=== PATIENT | male | born 1995 | race African-American/Black ===

== ENCOUNTER 2017-07-22 09:40 | Inpatient (IN) | payer OTHER ==
[2017-07-22 10:22] LABS: #Basophils 0.2 thou/uL (0.0-0.2); #Eosinphils 0.1 thou/uL (0.0-0.7); #Lymphocytes 2.6 thou/uL (1.20-3.40); #Monocytes 0.6 thou/uL (0.11-0.59); #Neutrophils 6.9 thou/uL (1.40-6.50); %Basophils 1.5 % (0.0-1.0); %Eosinophils 1.4 % (0.0-10.0); %Lymphocytes 25.2 % (21.0-51.0); %Monocytes 6.1 % (0.0-10.0); Hematocrit 49.3 % (42.0-52.0); Mean Platelet Volume 5.9 fL (7.4-10.4); Red Blood Cell (RBC) Count 5.27 mill/uL (4.70-6.10); White Blood Cell (WBC) Count 10.4 thou/uL (4.8-10.8)
[2017-07-22 10:37] LABS: ALT (SGPT) 14 U/L (8-55); AST (SGOT) 10 U/L (5-34); Alkaline Phosphatase 87 U/L (40-150); Anion Gap 17 mmol/L (10-20); BUN (Urea Nitrogen) 13 mg/dL (8.9-20.6); Bilirubin, Total 0.6 mg/dL (0.2-1.2); Calc. Creatinine Clearance 0 mL/min (70-130); Calcium 9.2 mg/dL (7.8-10.44); Carbon Dioxide 24 mmol/L (22-29); Chloride 101 mmol/L (98-107); Estimated GFR-MDRD Greater than 90; Globulin 3.4 g/dL (2.4-3.5); Lipase 15 U/L (8-78); Protein, Total 7.3 g/dL (6.0-8.3)
[2017-07-22 10:40] LABS: Bilirubin Negative (Negative); Blood, Urine Negative (Negative); Glucose, Urine (Dipstick) 250 mg/dL (Negative); Ketone, Urine Trace mg/dL (Negative); Nitrite Negative (Negative); Protein, Urine (Dipstick) Negative (Neg-Trace)
[2017-07-22] MEDS ORDERED: Ondansetron HCl/PF 4 MG/2 ML Vial ONE (10:53)
[2017-07-22] MEDS ORDERED: Iopamidol 370 76% 100 ML VIAL ONE (13:44)
[2017-07-22] MEDS ORDERED: Ciprofloxacin Lactate/D5W 400 mg/200 ml Premix ONE (14:02)
[2017-07-22] MEDS ORDERED: Insulin Regular 300 UNITS/3 ML VIAL ONE (14:02)
--- NOTE | 2017-07-22 14:30 | ULT ---
GALLBLADDER ULTRASOUND: History: Right upper quadrant pain. FINDINGS: Real-time images of the right upper quadrant show a slightly contracted gallbladder. No gallstones. T he patient is not NPO for this examination. The common duct is 2 mm. Technologist reports a negative ultrasound Bond's sign. Visualized liver parenchyma shows no focal abnormalities. The right kidney is normal in size and not obstructed. Pancreas is obscured. IMPRESSION: No evidence of gallstones. POS: DAVI
[2017-07-22] MEDS ORDERED: metroNIDAZOLE 500 MG/100 ML BAG ONE (15:22)
--- NOTE | 2017-07-22 15:37 | CT ---
CT ABDOMEN WITH CONTRAST CT PELVIS WITH CONTRAST: HISTORY: 22-year-old male with upper abdominal pain for two days. Technique: IV contrast: Isovue 370 Oral contrast: Not administered. FINDINGS: Liver: normal. Spleen: normal. Pancreas: normal. Kidneys: normal. Bladder: normal. Abdominal aorta: normal. Free fluid: None. Colon: There is diffuse mural thickening throughout the lower sigmoid colon and entire rectum. Smaill bowel: not distended. Appendix: normal. There are diffuse interstitial densities throughout the base of the bilateral lungs. At least part of this is due to breathing motion artifact. It is uncertain whether or not there are actual interstiti al densities in addition to the artifact. IMPRESSION: 1. Findings suggestive of proctitis throughout the rectum and distal sigmoid colon. 3. Otherwise, no other abnormality in the rest of the abdomen and pelvis. 4. Interstitial densities in the bilateral lung bases, at least part of which represents breathing mo tion artifact. kamryn POS: YELENA
[2017-07-22] MEDS ORDERED: Ondansetron ODT 4 MG TAB SL PRN (17:04)
[2017-07-22] MEDS ORDERED: Ondansetron HCl/PF 4 MG/2 ML Vial IVP PRN ×3 (17:04→17:09)
[2017-07-22] MEDS ORDERED: Acetaminophen 325 MG TAB PO PRN (17:04)
[2017-07-22] MEDS ORDERED: Sodium Chloride 0.9% 1,000 ML IV SCH (17:04)
[2017-07-22] MEDS ORDERED: Dextrose 50% Abboject 50 ML SYRINGE SLOW IVP PRN (17:09)
[2017-07-22] MEDS ORDERED: Mag-Al 1200 mg/1200 mg/30 ML UDCUP PO PRN (17:09)
[2017-07-22] MEDS ORDERED: Senokot 8.6 MG TAB PO PRN (17:09)
[2017-07-22] MEDS ORDERED: Calcium Carbonate 500 MG ChewTAB PO PRN (17:09)
[2017-07-22] MEDS ORDERED: Bisacodyl 5 MG TAB PO PRN (17:09)
[2017-07-22] MEDS ORDERED: Nitroglycerin 0.4 MG TAB (25 Tab Bottle) SL PRN (17:09)
[2017-07-22] MEDS ORDERED: Benzonatate 100 MG CAP PO PRN (17:09)
[2017-07-22] MEDS ORDERED: Diabetic Tussin 200 MG/10 ML UDCUP PO PRN (17:09)
[2017-07-22] MEDS ORDERED: hydrALAZINE 20 MG/ML VIAL SLOW IVP PRN (17:09)
[2017-07-22] MEDS ORDERED: cloNIDine 0.1 MG TAB PO PRN (17:09)
[2017-07-22] MEDS ORDERED: Dextrose 5% in Water 1,000 ML IV PRN (17:09)
[2017-07-22] MEDS ORDERED: Lorazepam 1 MG TAB PO PRN (17:09)
[2017-07-22] MEDS ORDERED: Loratadine 10 MG TAB PO PRN (17:09)
[2017-07-22] MEDS: HumaLOG 300 UNITS/3 ML VIAL SC PRN ×2 (18:10→21:29)
--- NOTE | 2017-07-22 18:17 | HP ---
DATE OF ADMISSION: 07/22/2017 PRIMARY CARE PHYSICIAN: Faith Chance M.D. CHIEF COMPLAINT: Abdominal pain. HISTORY OF PRESENTING ILLNESS: Mr. Wood is a very pleasant 22-year-old -Citizen Of [place] male with a history of Down syndrome as well as diabetes mellitus who presented to the [facility] with the above-mentioned complaints. History is mainly obtained by the patient himself and [facility] medical records have been reviewed. The patient is somewhat of a poor historian because of D own syndrome and speech problems and his mother is also the history provider. Case has been discusse d with admitting ER physician in [facility]. According to Mr. Wood's mother, he started to have abdominal pain 2 days ago. It is mainly upper ab dominal and epigastric in region. He has not had any nausea or vomiting with pain. He did not have any diarrhea, but this morning he started to have some loose stools without any blood in it. He did eat out at [employer] recently, but nothing out of ordinary. On presentation to the emergency room, he was hemodynamically stable. He underwent initially an ultr asound of the abdomen and pelvis which was dedicated to gallbladder. It did not show any gallstones. Later because of persistent pain, he underwent a CT scan of the abdomen and pelvis with contrast wh ich showed findings suggestive of proctitis throughout the rectum and distal sigmoid colon. Otherwis e it was unremarkable. Given these findings, he was given IV antibiotics including metronidazole as well as ciprofloxacin and is transferred to our facility for further workup and admission. PAST MEDICAL HISTORY: 1. Diabetes mellitus. 2. Down syndrome. 3. History of seizure disorder. PAST SURGICAL HISTORY: 1. Bilateral eye surgery. 2. Bilateral tubes to ears. FAMILY HISTORY: No family history of any inflammatory bowel disease. No premature coronary artery d isease. PSYCHIATRIC HISTORY: Anxiety. SOCIAL HISTORY: He lives with his family. No history of drug, tobacco or alcohol abuse. ALLERGIES: No known medication allergies. CURRENT MEDICATIONS: Gabapentin 300 mg daily, Humalog insulin sliding scale, Lantus 45 units once a day, metformin 1000 mg b.i.d., and omeprazole 20 mg daily. REVIEW OF SYSTEMS: Limited due to the patient's speech, it is not able to be understood and Down syn drome. He does report abdominal pain mainly in the upper part. LABORATORY DATA AND IMAGING: His CBC is unremarkable. Serum chemistry showed blood glucose of 330, otherwise unremarkable. Lipase is normal. Urinalysis; trace ketones and some glucose, otherwise unr emarkable. CT scan of the abdomen and pelvis by my review as per above. PHYSICAL EXAMINATION: VITAL SIGNS: His most recent vital signs include temperature 98.9, pulse of 95, respirations 16, sat urating 96% on room air, and blood pressure 110/66. GENERAL: No acute distress, awake, alert, oriented x3, lying comfortably in bed. Mother is at [facility]. The patient is able to follow simple commands and answers simple questions. HEENT: Mucous membrane is moist and pink. No oropharyngeal exudate or erythema. Head is normocepha lic, atraumatic. Pupils are equal and reactive to light and accommodation. Extraocular movements in tact. NECK: Supple without any lymphadenopathy, JVD or bruit. CHEST: Clear to auscultation without any wheezing, rales or rhonchi. Rate and rhythm is regular wit hout any murmurs, rubs or gallops. ABDOMEN: Somewhat tender to palpation all over. EXTREMITIES: Free of any cyanosis, clubbing, or edema. There is no palpable abscess to the axillary exam on the left side. No draining sinus noticed either. NEUROLOGIC: Examination is nonfocal. SKIN: Free of any rashes or bruises. Feels warm and dry to touch. PSYCHIATRIC: Normal affect. IMPRESSION AND PLAN: 1. Proctitis. The etiology is unclear at this time. Most likely, it is secondary to bacterial coli tis type picture. The patient was recently treated with Augmentin for an axillary abscess. The poss ibility of Clostridium difficile needs to be ruled out as well. We will send stool for culture, para site as well as Clostridium difficile testing. Meanwhile, he will be continued on IV antibiotics emp irically, namely ciprofloxacin and metronidazole. We will also request Gastroenterology for further recommendations, stated he may or may not need colonoscopy. Currently, he is hemodynamically stable. He will be started on gentle IV fluid hydration as well and we will monitor electrolytes with ongoi ng diarrhea. 2. Diabetes mellitus type 2. He will be started on Humalog insulin sliding scale. We will start La ntus if his blood sugars permit at a lower dose and titrate as needed. 3. Down syndrome. The patient is at baseline. We will provide fall and aspiration precautions. 4. Recent axillary abscess. 5. Deep venous thrombosis and gastrointestinal prophylaxis. 6. Add p.r.n. medication orders. DISPOSITION: Mr. Wood is being admitted for sigmoid colitis and proctitis of unclear etiology. Fur ther management will depend upon his clinical course. Estimated length of stay is at least 2-3 midni ghts and needing gastroenterological workup to rule out IBD.
[2017-07-22] MEDS: Sodium Chloride 0.9% 1,000 ML IV SCH (18:33)
[2017-07-22] MEDS: traMADol HCl 50 MG TAB PO PRN (18:39)
[2017-07-22] MEDS: Acetaminophen 325 MG TAB PO PRN (18:39)
[2017-07-22] MEDS: Famotidine 20 MG TAB PO SCH (21:22)
[2017-07-22] MEDS: metroNIDAZOLE 500 MG in Premix Bag 1 BAG IVPB SCH (21:22)
[2017-07-23] MEDS: Ciprofloxacin Lactate/D5W 200 MG in Premix Bag 1 BAG IVPB SCH ×2 (02:34→13:30)
[2017-07-23] MEDS: traMADol HCl 50 MG TAB PO PRN ×2 (04:04→21:32)
[2017-07-23] MEDS: metroNIDAZOLE 500 MG in Premix Bag 1 BAG IVPB SCH ×3 (05:27→21:31)
[2017-07-23] MEDS: HumaLOG 300 UNITS/3 ML VIAL SC PRN ×4 (05:34→21:36)
[2017-07-23 05:37] LABS: #Basophils 0.1 thou/uL (0.0-0.2); #Eosinphils 0.2 thou/uL (0.0-0.7); #Lymphocytes 2.6 thou/uL (1.20-3.40); #Monocytes 0.5 thou/uL (0.11-0.59); #Neutrophils 8.5 thou/uL (1.40-6.50); %Basophils 0.6 % (0.0-1.0); %Eosinophils 1.7 % (0.0-10.0); %Lymphocytes 22.1 % (21.0-51.0); Hematocrit 46.7 % (42.0-52.0); Mean Platelet Volume 6.8 fL (7.4-10.4); Red Blood Cell (RBC) Count 4.83 mill/uL (4.70-6.10); White Blood Cell (WBC) Count 11.9 thou/uL (4.8-10.8)
[2017-07-23 05:51] LABS: Anion Gap 11 mmol/L (10-20); BUN (Urea Nitrogen) 10 mg/dL (8.9-20.6); Calc. Creatinine Clearance 166 mL/min (70-130); Carbon Dioxide 26 mmol/L (22-29); Chloride 101 mmol/L (98-107); Estimated GFR-MDRD Greater than 90
[2017-07-23] MEDS: Famotidine 20 MG TAB PO SCH ×2 (07:30→21:31)
[2017-07-23] MEDS: Sodium Chloride 0.9% 1,000 ML IV SCH (07:36)
[2017-07-23] MEDS: Enoxaparin Sodium 40 MG/0.4 ML SYRINGE SC SCH (07:56)
[2017-07-23] MEDS ORDERED: FLU VACC QS2017-18 36 mo. & older 0.5 ML SYRINGE IM ONE (09:00)
[2017-07-23] MEDS ORDERED: Non-Formulary Item 1 EACH (Levalbuterol Tartrate [Xopenex Hfa Inhaler] 1 PUFF) INH PRN (09:20)
[2017-07-23] MEDS ORDERED: PROVENTIL INHALER 6.7 G (200 INHALATIONS) INH PRN (09:26)
[2017-07-23] MEDS ORDERED: Fluticasone Propionate Nasal Spray 16 gm Bottle NASAL SCH (09:30)
[2017-07-23] MEDS: Loratadine 10 MG TAB PO SCH (10:28)
--- NOTE | 2017-07-23 14:38 | PDOC.PN ---
- Subjective Encounter Start Date: 07/23/17 Encounter Start Time: 14:36 Subjective: discussed w mom as pt had Down's.he says "yes:when asked about AP - Objective MAR Reviewed: Yes Vital Signs & Weight: Vital Signs (12 hours) Temp Pulse Resp BP Pulse Ox 07/23/17 10:53 97.8 F 69 20 138/82 97 07/23/17 08:00 98.1 F 58 L 18 07/23/17 07:57 98.1 F 58 L 18 116/75 99 07/23/17 04:00 97.7 F 61 18 123/85 93 L Weight Weight 205 lb 0.478 oz Result Diagrams: 07/23/17 04:32 07/23/17 04:32 Additional Labs: Accuchecks 07/23/17 07/23/17 07/22/17 11:03 05:13 20:15 POC Glucose 240 H 214 H 325 H 07/22/17 17:42 POC Glucose 172 H Microbiology 07/22/17 21:43 Stool Stool Lactoferrin - Final 07/22/17 21:43 Stool Campylobacter Antigen Assay - Final 07/22/17 21:43 Stool Shiga Toxin Test - Final 07/22/17 21:43 Stool C. difficile GDH Antigen & Toxins - Final 07/22/17 21:43 Stool Stool Culture - Preliminary Phys Exam - Physical Examination Constitutional: NAD HEENT: PERRLA, moist MMs, sclera anicteric, oral pharynx no lesions Neck: no nodes, no JVD, supple, full ROM Respiratory: no wheezing, no rales, no rhonchi, clear to auscultation bilateral Cardiovascular: RRR, no significant murmur, no rub, gallop Gastrointestinal: soft, non-tender, no distention, positive bowel sounds Musculoskeletal: no edema, pulses present Neurological: non-focal, normal sensation, moves all 4 limbs Psychiatric: normal affect, A&O x 3 Skin: no rash Dx/Plan (1) Proctitis Code(s): K62.89 - OTHER SPECIFIED DISEASES OF ANUS AND RECTUM Status: Acute (2) Abdominal pain Code(s): R10.9 - UNSPECIFIED ABDOMINAL PAIN Status: Acute (3) DM2 (diabetes mellitus, type 2) Status: Chronic Qualifiers: Diabetes mellitus complication status: with hyperglycemia (4) Down syndrome Code(s): Q90.9 - DOWN SYNDROME, UNSPECIFIED Status: Chronic - Plan DVT proph w/SCDs hemodynamically stable.stool studies negative. -: cont empiric ABx,IVF. -: awaiting GI recs. -: cont home meds as below. monitor blood sugar. * . Review of Systems - Review of Systems Other: can not be obtained reliably due to Down's syndrome - Medications/Allergies Allergies/Adverse Reactions: Allergies Allergy/AdvReac Type Severity Reaction Status Date / Time No Known Allergies Allergy Verified 05/02/13 10:40 Medications: Current Medications Acetaminophen (Tylenol) 650 mg PO Q4H PRN PRN Reason: Headache/Fever or Pain Last Admin: 07/22/17 18:39 Dose: 650 mg Al Hydroxide/Mg Hydroxide (Maalox) 30 ml PO Q6H PRN PRN Reason: Heartburn or Indigestion Albuterol Sulfate (Proventil Hfa) 1 puff INH Q4H PRN PRN Reason: SOB Benzonatate (Tessalon) 100 mg PO Q4H PRN PRN Reason: Cough Bisacodyl (Dulcolax) 10 mg PO DAILYPRN PRN PRN Reason: Constipation Calcium Carbonate (Tums) 1,000 mg PO Q4H PRN PRN Reason: Heartburn or Indigestion Clonidine (Catapres) 0.1 mg PO Q4H PRN PRN Reason: Systolic BP > 160 Dextrose/Water (Dextrose 50%) 25 gm SLOW IVP PRN PRN PRN Reason: Hypoglycemia Enoxaparin Sodium (Lovenox) 40 mg SC 0900 [facility] Last Admin: 07/23/17 07:56 Dose: 40 mg Famotidine (Pepcid) 20 mg PO BID [facility] Last Admin: 07/23/17 07:30 Dose: 20 mg Fluticasone Propionate (Flonase Nasal [place]) 0 gm NASAL BID-RT [facility] Glucagon (Glucagon) 1 mg IM PRN PRN PRN Reason: Hypoglycemia Guaifenesin (Robitussin Sf) 200 mg PO Q4H PRN PRN Reason: Cough Hydralazine HCl (Apresoline) 10 mg SLOW IVP Q4H PRN PRN Reason: Systolic BP > 180 Dextrose/Water (D5w) 1,000 mls @ 0 mls/hr IV .Q0M PRN; As Directed PRN Reason: Hypoglycemia Sodium Chloride (Normal Saline 0.9%) 1,000 mls @ 75 mls/hr IV .[id number] [facility] Last Admin: 07/23/17 07:36 Dose: 1,000 mls Ciprofloxacin/Dextrose 200 mg/ (Device) 100 mls @ 100 mls/hr IVPB 0200,1400 [facility] Last Admin: 07/23/17 13:30 Dose: 100 mls Metronidazole 500 mg/ Device 100 mls @ 100 mls/hr IVPB Q8HR [facility] Last Admin: 07/23/17 13:29 Dose: 100 mls Insulin Detemir 45 units/ (Miscellaneous Medication) 0.45 mls @ 0 mls/hr SC HS [facility] Insulin Human Lispro (Humalog) 0 units SC .MODERATE SLIDING SC PRN PRN Reason: Moderate Correctional Scale Last Admin: 07/23/17 11:34 Dose: 4 unit Insulin Human Lispro (Humalog) 0 units SC .BEDTIME SLIDING SC PRN PRN Reason: Bedtime Correctional Scale Last Admin: 07/22/17 21:29 Dose: 4 unit Ketotifen Fumarate (Zaditor 0.025% [facility] Sol) 1 drop EA EYE BID [facility] Loratadine (Claritin) 10 mg PO DAILYPRN PRN PRN Reason: Sinus Symptoms Loratadine (Claritin) 10 mg PO DAILY [facility] Last Admin: 07/23/17 10:28 Dose: 10 mg Lorazepam (Ativan) 1 mg PO Q4H PRN PRN Reason: Anxiety/Agitation Metformin HCl (Glucophage) 1,000 mg PO BID-[facility] Nitroglycerin (Nitrostat) 0.4 mg SL Q5MIN PRN PRN Reason: Chest Pain Ondansetron HCl (Zofran) 4 mg IVP Q6H PRN PRN Reason: Nausea/Vomiting Pantoprazole Sodium (Protonix) 40 mg PO DAILY [facility] Last Admin: 07/23/17 09:50 Dose: Not Given Senna (Senokot) 2 tab PO HSPRN PRN PRN Reason: Constipation Tramadol HCl (Ultram) 50 mg PO Q4H PRN PRN Reason: Moderate Pain (4-6) Last Admin: 07/23/17 04:04 Dose: 50 mg
[2017-07-23] MEDS: metFORMIN 500 MG TAB PO SCH (16:35)
[2017-07-23] MEDS: Fluticasone Propionate Nasal Spray 16 gm Bottle NASAL SCH (18:06)
[2017-07-23] MEDS ORDERED: Non-Formulary Item 1 EACH (Metformin Hcl [Glucophage] 1,000 MG) PO SCH (21:00)
[2017-07-23] MEDS: Insulin Detemir 100 UNITS/ML 45 UNITS in Pre-Filled Syringe SC SCH (21:35)
[2017-07-23] MEDS: GoLYTELY 4,000 ml Bottle PO SCH (22:35)
[2017-07-23] MEDS: Ketotifen Fumarate 0.025% Ophth Soln 5 ml Bottle EA EYE SCH (22:35)
[2017-07-24] MEDS: Acetaminophen 325 MG TAB PO PRN (00:47)
[2017-07-24] MEDS: traMADol HCl 50 MG TAB PO PRN ×2 (00:47→06:59)
[2017-07-24] MEDS: Ciprofloxacin Lactate/D5W 200 MG in Premix Bag 1 BAG IVPB SCH ×2 (01:45→14:00)
[2017-07-24] MEDS: Sodium Chloride 0.9% 1,000 ML IV SCH ×2 (01:46→07:52)
--- NOTE | 2017-07-24 04:00 | CON ---
DATE OF CONSULTATION: 07/23/2017 HISTORY OF PRESENT ILLNESS: Mr. Wood is a 22-year-old man with Down syndrome who presented to the e merg[facility] room yesterday with abdominal pain. He has had problems with constipation for years. He jones s taken multiple different types of laxatives including MiraLax 3 times a day without help and ultima tely he has been on no laxatives recently. He has a bowel movement 3 or 4 times per week and when he does go, he seems to strain on pass small, hard, pebble like stools often. He has had epigastric pa in for the last week which improves when he does have a bowel movement. The pain will go on for 10-3 0 minutes at a time with aching in the epigastric region and when he is able to pass some formed stoo ls, he has improvement. He had a couple of small volume liquidy stools yesterday, but this morning, he passed formed stools and had a much better day-to-day and he has had no abdominal pain until this evening. He did have a CT scan of the abdomen and pelvis on presentation, which showed thickening of the rectum and distal sigmoid. He was started on antibiotics. He has had no nausea or vomiting rep orted. PAST MEDICAL HISTORY: Down syndrome, diabetes mellitus, seizure disorder. PAST SURGICAL HISTORY: Eye surgery, ear tubes, and repair of a cardiac septal defect as a child. FAMILY HISTORY: Negative for GI malignancies. SOCIAL HISTORY: No alcohol, tobacco, or drugs. He lives with his family. His mother is with him at the bedside now contributing to the history. ALLERGIES: No known drug allergies. MEDICATIONS: Prior to admission, gabapentin, insulin, metformin, omeprazole. REVIEW OF SYSTEMS: Negative x10 systems reviewed except as stated in the history of present illness. PHYSICAL EXAMINATION: VITAL SIGNS: Temperature 97.8, pulse 79, blood pressure 131/83. GENERAL: He has typical appearance associated with Down syndrome. He does have a thick neck which m ay make sedation propofol more difficult. HEENT: He has no cervical or supraclavicular lymphadenopathy. LUNGS: Clear to auscultation bilaterally. HEART: Regular rate and rhythm. ABDOMEN: Soft, mild tenderness in the epigastric region without guarding. Bowel sounds are present. EXTREMITIES: No lower extremity edema. No obvious skin lesions. LABORATORY DATA: White blood cell count 11.9, hemoglobin 15.6, platelets 338. Creatinine 0.92, bili pinon 0.6, AST 10, ALT 14, alkaline phosphatase 87, albumin 3.9, lipase 15. IMPRESSION: Chronic constipation, presenting with abdominal pain and possible thickening of the rect um and distal sigmoid by CT scan. He could be having periodic impactions leading to these findings w ith stercoral ulceration or inflammation. Alternatively, he could have some inflammatory process in the rectum, which could be leading to the straining and frequent sensation of needing to have a bowel movement. I think this scenario is less likely. His abdominal pain does improve when he is able to pass formed stool. He had stool studies today, which were negative for infectious organisms. Clost ridium difficile was not around since the stool was solid. He has had no blood in the stool. RECOMMENDATIONS: 1. Colonoscopy tomorrow. 2. He will need to start scheduled laxatives. He can restart the MiraLax 2 or 3 times per day. In the meantime, however, I would give a trial of Linzess daily if he is able to obtain it. We will kendra uli Garber prep for colonoscopy tomorrow.
[2017-07-24] MEDS: metroNIDAZOLE 500 MG in Premix Bag 1 BAG IVPB SCH ×3 (05:56→20:46)
[2017-07-24] MEDS ORDERED: Fleet Enema 133 ML BOT FS SCH (06:45)
[2017-07-24] MEDS: GoLYTELY 4,000 ml Bottle PO SCH (07:00)
[2017-07-24] MEDS: Fluticasone Propionate Nasal Spray 16 gm Bottle NASAL SCH ×3 (07:27→20:44)
[2017-07-24] MEDS: Enoxaparin Sodium 40 MG/0.4 ML SYRINGE SC SCH (07:43)
[2017-07-24] MEDS: metFORMIN 500 MG TAB PO SCH ×2 (07:44→16:57)
[2017-07-24] MEDS: Famotidine 20 MG TAB PO SCH ×2 (07:47→20:44)
[2017-07-24] MEDS ORDERED: HYDROcodone/Acetaminophen 5/325 mg Tablet PO SCH (08:30)
[2017-07-24] MEDS ORDERED: Non-Formulary Item 1 EACH (Olopatadine Hcl [Pataday] 1 DROP) EA EYE SCH (09:00)
[2017-07-24] MEDS ORDERED: Non-Formulary Item 1 EACH (Loratadine [Claritin] 10 MG) PO SCH (09:00)
[2017-07-24] MEDS ORDERED: Non-Formulary Item 1 EACH (Omeprazole [Omeprazole] 1 TAB) PO SCH (09:00)
[2017-07-24] MEDS: Pantoprazole 40 MG GRANULES PACKET PO SCH (09:06)
[2017-07-24] MEDS ORDERED: Ketorolac Tromethamine 30 MG/ML VIAL IVP PRN (09:08)
[2017-07-24] MEDS: Loratadine 10 MG TAB PO SCH (09:21)
[2017-07-24] MEDS: Ketotifen Fumarate 0.025% Ophth Soln 5 ml Bottle EA EYE SCH ×2 (09:21→20:47)
--- NOTE | 2017-07-24 14:17 | PDOC.PN ---
- Subjective Encounter Start Date: 07/24/17 Encounter Start Time: 14:15 Subjective: c/o abdominal pain w cramps ,relieved w defecation -: no nausea/vomiting - Objective MAR Reviewed: Yes Vital Signs & Weight: Vital Signs (12 hours) Temp Pulse Resp BP Pulse Ox 07/24/17 08:00 97.5 F L 75 18 115/77 96 07/24/17 04:00 97.5 F L 66 18 114/74 97 Weight Weight 205 lb 0.478 oz I&O: 07/23/17 07/24/17 07/25/17 06:59 06:59 06:59 Intake Total 900 Balance 900 Result Diagrams: 07/23/17 04:32 07/23/17 04:32 Additional Labs: Accuchecks 07/24/17 07/23/17 07/23/17 11:39 21:19 16:40 POC Glucose 159 H 298 H 351 H Phys Exam - Physical Examination Constitutional: NAD uncomfortable HEENT: PERRLA, moist MMs, sclera anicteric, oral pharynx no lesions Neck: no nodes, no JVD, supple, full ROM Respiratory: no wheezing, no rales, no rhonchi, clear to auscultation bilateral Cardiovascular: RRR, no significant murmur Gastrointestinal: soft, non-tender, no distention, positive bowel sounds Musculoskeletal: no edema, pulses present Neurological: non-focal, normal sensation, moves all 4 limbs Psychiatric: normal affect Skin: no rash Dx/Plan (1) Proctitis Code(s): K62.89 - OTHER SPECIFIED DISEASES OF ANUS AND RECTUM Status: Acute (2) Abdominal pain Code(s): R10.9 - UNSPECIFIED ABDOMINAL PAIN Status: Acute (3) DM2 (diabetes mellitus, type 2) Status: Chronic Qualifiers: Diabetes mellitus complication status: with hyperglycemia (4) Down syndrome Code(s): Q90.9 - DOWN SYNDROME, UNSPECIFIED Status: Chronic - Plan ? Stercoral colitis. laxatives.Colonoscopy today after prep & Enema. -: supportive care. -: hemodynamically stable * . Review of Systems - Review of Systems Other: c/o AP.O/W difficult to obtain due to Down's - Medications/Allergies Allergies/Adverse Reactions: Allergies Allergy/AdvReac Type Severity Reaction Status Date / Time No Known Allergies Allergy Verified 05/02/13 10:40 Medications: Current Medications Acetaminophen (Tylenol) 650 mg PO Q4H PRN PRN Reason: Headache/Fever or Pain Last Admin: 07/24/17 00:47 Dose: 650 mg Al Hydroxide/Mg Hydroxide (Maalox) 30 ml PO Q6H PRN PRN Reason: Heartburn or Indigestion Albuterol Sulfate (Proventil Hfa) 1 puff INH Q4H PRN PRN Reason: SOB Benzonatate (Tessalon) 100 mg PO Q4H PRN PRN Reason: Cough Bisacodyl (Dulcolax) 10 mg PO DAILYPRN PRN PRN Reason: Constipation Calcium Carbonate (Tums) 1,000 mg PO Q4H PRN PRN Reason: Heartburn or Indigestion Clonidine (Catapres) 0.1 mg PO Q4H PRN PRN Reason: Systolic BP > 160 Dextrose/Water (Dextrose 50%) 25 gm SLOW IVP PRN PRN PRN Reason: Hypoglycemia Enoxaparin Sodium (Lovenox) 40 mg SC 0900 [facility] Last Admin: 07/24/17 07:43 Dose: Not Given Famotidine (Pepcid) 20 mg PO BID [facility] Last Admin: 07/24/17 07:47 Dose: 20 mg Fluticasone Propionate (Flonase Nasal [place]) 0 gm NASAL BID [facility] Last Admin: 07/24/17 09:21 Dose: Not Given Glucagon (Glucagon) 1 mg IM PRN PRN PRN Reason: Hypoglycemia Guaifenesin (Robitussin Sf) 200 mg PO Q4H PRN PRN Reason: Cough Hydralazine HCl (Apresoline) 10 mg SLOW IVP Q4H PRN PRN Reason: Systolic BP > 180 Dextrose/Water (D5w) 1,000 mls @ 0 mls/hr IV .Q0M PRN; As Directed PRN Reason: Hypoglycemia Sodium Chloride (Normal Saline 0.9%) 1,000 mls @ 75 mls/hr IV .[id number] [facility] Last Admin: 07/24/17 07:52 Dose: Not Given Ciprofloxacin/Dextrose 200 mg/ (Device) 100 mls @ 100 mls/hr IVPB 0200,1400 [facility] Last Admin: 07/24/17 01:45 Dose: 100 mls Metronidazole 500 mg/ Device 100 mls @ 100 mls/hr IVPB Q8HR [facility] Last Admin: 07/24/17 05:56 Dose: 100 mls Insulin Detemir 45 units/ (Miscellaneous Medication) 0.45 mls @ 0 mls/hr SC HS [facility] Last Admin: 07/23/17 21:35 Dose: 0.45 mls Insulin Human Lispro (Humalog) 0 units SC .MODERATE SLIDING SC PRN PRN Reason: Moderate Correctional Scale Last Admin: 07/23/17 17:26 Dose: 10 unit Insulin Human Lispro (Humalog) 0 units SC .BEDTIME SLIDING SC PRN PRN Reason: Bedtime Correctional Scale Last Admin: 07/23/17 21:36 Dose: 3 unit Ketotifen Fumarate (Zaditor 0.025% [facility] Sol) 1 drop EA EYE BID [facility] Last Admin: 07/24/17 09:21 Dose: Not Given Loratadine (Claritin) 10 mg PO DAILYPRN PRN PRN Reason: Sinus Symptoms Loratadine (Claritin) 10 mg PO DAILY [facility] Last Admin: 07/24/17 09:21 Dose: Not Given Lorazepam (Ativan) 1 mg PO Q4H PRN PRN Reason: Anxiety/Agitation Metformin HCl (Glucophage) 1,000 mg PO BID-[facility] Last Admin: 07/24/17 07:44 Dose: Not Given Nitroglycerin (Nitrostat) 0.4 mg SL Q5MIN PRN PRN Reason: Chest Pain Ondansetron HCl (Zofran) 4 mg IVP Q6H PRN PRN Reason: Nausea/Vomiting Pantoprazole Sodium (Protonix) 40 mg PO DAILY [facility] Last Admin: 07/24/17 09:06 Dose: 40 mg Senna (Senokot) 2 tab PO HSPRN PRN PRN Reason: Constipation Sodium Chloride (Flush - Normal Saline) 10 ml IVF Q12HR [facility] Last Admin: 07/24/17 07:43 Dose: Not Given Sodium Chloride (Flush - Normal Saline) 10 ml IVF PRN PRN PRN Reason: Saline Flush Tramadol HCl (Ultram) 50 mg PO Q4H PRN PRN Reason: Moderate Pain (4-6) Last Admin: 07/24/17 06:59 Dose: 50 mg
[2017-07-24] MEDS ORDERED: Lidocaine 1% PF 5 ML VIAL ONE (17:06)
[2017-07-24] MEDS ORDERED: Propofol 200 MG/20 ML VIAL ONE (17:06)
[2017-07-24] MEDS: Insulin Detemir 100 UNITS/ML 45 UNITS in Pre-Filled Syringe SC SCH (20:45)
[2017-07-24] MEDS: HumaLOG 300 UNITS/3 ML VIAL SC PRN (20:47)
--- NOTE | 2017-07-24 21:55 | OP ---
PREPROCEDURE DIAGNOSES: 1. Epigastric pain. 2. Chronic constipation. 3. CT scan with questionable proctocolitis in the lower colon. 4. CAT scan and ultrasound of the upper abdomen were normal. There was no evidence of pancreatitis on laboratory studies normal CMP, CBC and lipase. POSTPROCEDURE DIAGNOSES: 1. Normal esophagogastroduodenoscopy, biopsies taken for celiac in light of Down syndrome. 2. Colonoscopy notable for very poor prep, but no evidence of colitis, proctitis, obstruction, polyp s or masses. RECOMMENDATIONS: 1. Low residue diet, consider FODMAP diet. It may be helpful to decrease gas and bloating. 2. MiraLax daily on discharge. It may be reasonable to try Linzess once daily to see if that helps with obstipation and constipation. ANESTHESIA: TIVA. PROCEDURE IN DETAIL: After the patient was informed of the risks, benefits and possible complication s of endoscopy including perforation, bleeding, reactions to medication and aspiration, informed cons ent was obtained. The patient was brought to the endoscopy suite where she was sedated in gradual fa shion. Once she was comfortable, the endoscope was advanced through the esophagus, stomach and secon d and third portion of the duodenum and slowly removed. There was good visualization of the mucosa. There were no masses, lesions or AV malformations noted. Biopsies were taken from the second portio n of the duodenum to rule out celiac disease, otherwise no abnormalities noted. Retroflexed views in the stomach were normal. The scope was removed. The patient tolerated the procedure well. The patient was turned in the room. A rectal exam was performed. There was poor prep noted with ins ertion of the endoscope through the colon to cecum, which was identified by ileocecal valve and appen diceal orifice. Some of the stool cannot be rinsed away. There was no overt mass or lesions, althou gh small polyps could have been missed. There were no signs of colitis anywhere in the colon, especi ally in the rectosigmoid, which was noted on admission CT. These changes may have been related to ch ronic constipation. Retroflexed views in the rectum were normal. The scope was removed. The patien t tolerated the procedure well with no complications.
[2017-07-25] MEDS: Ciprofloxacin Lactate/D5W 200 MG in Premix Bag 1 BAG IVPB SCH (01:24)
[2017-07-25] MEDS: Sodium Chloride 0.9% 1,000 ML IV SCH (01:24)
[2017-07-25] MEDS: metroNIDAZOLE 500 MG in Premix Bag 1 BAG IVPB SCH (04:26)
[2017-07-25] MEDS: HumaLOG 300 UNITS/3 ML VIAL SC PRN (04:54)
[2017-07-25 06:27] LABS: #Basophils 0.1 thou/uL (0.0-0.2); #Eosinphils 0.4 thou/uL (0.0-0.7); #Lymphocytes 2.4 thou/uL (1.20-3.40); #Monocytes 0.6 thou/uL (0.11-0.59); #Neutrophils 7.9 thou/uL (1.40-6.50); %Basophils 0.9 % (0.0-1.0); %Eosinophils 3.6 % (0.0-10.0); %Monocytes 5.3 % (0.0-10.0); Hematocrit 45.5 % (42.0-52.0); White Blood Cell (WBC) Count 11.5 thou/uL (4.8-10.8)
[2017-07-25 06:32] LABS: Anion Gap 11 mmol/L (10-20); BUN (Urea Nitrogen) 11 mg/dL (8.9-20.6); Calc. Creatinine Clearance 166 mL/min (70-130); Calcium 8.9 mg/dL (7.8-10.44); Carbon Dioxide 24 mmol/L (22-29); Chloride 102 mmol/L (98-107); Estimated GFR-MDRD Greater than 90
[2017-07-25] MEDS: metFORMIN 500 MG TAB PO SCH (07:54)
[2017-07-25] MEDS: Famotidine 20 MG TAB PO SCH (07:54)
[2017-07-25] MEDS: Pantoprazole 40 MG GRANULES PACKET PO SCH (07:54)
[2017-07-25] MEDS: Loratadine 10 MG TAB PO SCH (07:54)
[2017-07-25] MEDS: Enoxaparin Sodium 40 MG/0.4 ML SYRINGE SC SCH (07:54)
[2017-07-25] MEDS: Fluticasone Propionate Nasal Spray 16 gm Bottle NASAL SCH (07:58)
[2017-07-25] MEDS: Ketotifen Fumarate 0.025% Ophth Soln 5 ml Bottle EA EYE SCH (07:58)
[2017-07-25 08:15] VITALS: BP 120/82; TEMP 98.3
[2017-07-25] MEDS ORDERED: Fluticasone Propionate Nasal Spray 16 gm Bottle NASAL SCH (09:00)
--- NOTE | 2017-07-25 12:52 | DIS ---
DATE OF ADMISSION: 07/22/2017 DATE OF DISCHARGE: 07/25/2017 PRIMARY CARE PHYSICIAN: Dr. Faith Chance. DISCHARGE DIAGNOSES: 1. Abdominal pain. 2. Esophagogastroduodenoscopy and colonoscopy on 07/22/2017, normal esophagogastroduodenoscopy, biop sies taken for celiac disease in light of Down syndrome, colonoscopy was poorly prepped, but there wa s no evidence of colitis, proctitis, obstruction, polyps or masses. 3. Stool culture is negative. 4. Clostridium difficile screen could not be performed because the stool was formed. 5. Stool was negative for Campylobacter antigen and Shiga toxins. CONDITION OF PATIENT AT THE TIME OF DISCHARGE: Stable. I assessed Mr. Wood on the day of discharge. His mother was by the bedside. No recurrence of abdom inal pain. Vital signs stable. S1 and S2 are heard, regular. Lungs are clear to auscultation bilat erally. DISCHARGE MEDICATIONS: His home medications as dictated on the history and physical note are being c ontinued. In addition, he is advised to take MiraLax 17 grams daily. HOSPITAL COURSE: Mr. Wood is a pleasant 22-year-old gentleman who was admitted to [facility] on 07/22/2017 for abdominal pain. He was seen by Gastroenterology Service, Dr. Sukh gilbert. He had bidirectional scope studies by Dr. Bro on 07/24/2017. Following the scopes, dietitian has been consulted to treatment counselor the patient regarding low residue diet and followed mapping for FODMAP diet. He is also advised to be on MiraLax daily on discharge. Bench Press Operator also recommended t hat it may be reasonable to try Linzess once daily to see if that helps with obstipation and constipa tion. I have advised the patient's mother to discuss this issue with primary care physician. On the day of discharge, he has white count of 11,500, hemoglobin 15.4 and platelet count 302. Creat inine 0.92, sodium 133 and potassium 4.3. Many thanks for allowing me to participate in your patient's care. Please feel free to contact me wi th any questions or concerns. DISCHARGE DESTINATION: Home. TOTAL AMOUNT OF TIME SPENT COORDINATING THIS DISCHARGE: 33 minutes.
[2017-07-26] MEDS ORDERED: Polyethylene Glycol 3350 17 GM Packet PO SCH (09:00)
== END 2017-07-25 12:12 | disposition home or self-care (01) | DRG 392 ==
LOC: SCSER 09:40 → T4-A 17:10
PROVIDERS: ADMIT Internal Medicine; ATTEND Internal Medicine
PROC: 0DB98ZX Excision of Duodenum, Via Natural or Artificial Opening Endoscopic, Diagnostic (ICD-10-PCS; principal; 2017-07-24)
PROC: 0DJD8ZZ Inspection of Lower Intestinal Tract, Via Natural or Artificial Opening Endoscopic (ICD-10-PCS; 2017-07-24)
DX: R10.10 Upper abdominal pain, unspecified (principal); E11.9 Type 2 diabetes mellitus without complications; K59.09 Other constipation; Q90.9 Down syndrome, unspecified
CPT/HCPCS: 36415; 36416; 74177; 76705; 80048; 80053; 81003; 83630; 83690; 85025; 87015; 87045; 87046; 87206; 87449; 87899; 88305; 96361; 96365; 96367; 96375; A4216; J0744; J1650; J1815; J1885; J2001; J2405; J2704